=== PATIENT | female | born 1980 | race Caucasian/White ===

== ENCOUNTER 2023-10-20 16:15 | Emergency (ER) | payer BC, SELFPAY ==
[2023-10-20] VITALS (7 sets, daily range): BP systolic 125–162; BP diastolic 74–114; BMI 30.1
[2023-10-20 16:38] LABS: % Basophils 0.5 % (0-2); % Eosinophils 1.1 % (0-6); % Immature Granulocytes 0.3 % (0-0.5); % Lymphocytes 25.5 % (20.5-51.1); % Monocytes 4.1 % (1.7-9.3); % Neutrophils 68.5 % (42.2-75.2); Absolute Basophils 0.1 10^3/uL (0-0.2); Absolute Eosinophils 0.1 10^3/uL (0-0.7); Absolute Lymphocytes 2.8 10^3/uL (1.2-3.4); Absolute Monocytes 0.5 10^3/uL (0.1-0.6); Absolute Neutrophils 7.6 10^3/uL (1.4-6.5); Hematocrit 39.3 % (37.0-47.0); Hemoglobin 14.2 g/dL (12.0-16.0); Mean Corp Hgb Conc. 36.1 g/dL (33.0-37.0); Mean Corpuscular Hgb 32.4 pg (27.0-31.0); Mean Corpuscular Volume 89.7 fL (81.0-99.0); Mean Platelet Volume 9.2 fL (7.4-10.4); Nucleated Red Blood Cells % 0 %; Platelet Count 203 10^3/uL (130-400); Red Blood Cell Count 4.38 10^6/uL (4.20-5.40); Red Cell Dist. Width 12.5 % (11.5-14.5)
[2023-10-20 16:52] LABS: ALT (SGPT) 16 U/L (0-35); AST (SGOT) 25 U/L (14-36); Albumin 4.3 g/dl (3.5-5.0); Alkaline Phosphatase 75 U/L (38-126); Blood Urea Nitrogen 13 mg/dl (7-17); Calcium 9.7 mg/dl (8.4-10.2); Carbon Dioxide 23 mmol/L (22-30); Chloride 105 mmol/L (98-107); Estimated Creatinine Clearance 122 ml/min; Glucose 108 mg/dl (70-99); Potassium 3.9 mmol/L (3.5-5.1); Sodium 134 mmol/L (135-145); Total Bilirubin 0.5 mg/dl (0.2-1.3); Total Protein 6.8 g/dl (6.3-8.2); eGFR > 60.00
[2023-10-20 17:03] LABS: Troponin I < 0.012 ng/ml
--- NOTE | 2023-10-20 18:20 | ED.GENMED ---
History of Present Illness
General
Chief Complaint: Swelling
Source: patient
Exam Limitations: none
Time Seen by Provider: 10/20/23 17:48
Nursing documentation reviewed up to this point in time: agreed with
Travel History
Have you had any contact with someone who has COVID-19?: No
Do you have any symptoms of coronavirus? Fever > 100 degrees, chills, cough, shortness of breath, sore throat, loss of taste or smell, muscle aches, or headache?: No
History of Present Illness
History of Present Illness:
Patient is a 43-year-old female who presents to the ER for evaluation. Patient was sent by urgent care. Patient has had pain in her right foot since October 12. She denies any actual injury. She presently denies pain but reports that she had some
calf discomfort. She went to urgent care but was found to have an elevated heart rate and along with a previous cough history was sent to the ER for evaluation. Patient does report that she has had a cough since July she thought it was
bronchitis. She has not been eval by physician. She has not had any fevers. She is a heavy smoker. She denies any actual shortness of breath.
She is not on oral contraceptives no prior history of DVT PE. She does report that her heart was fast at urgent care which is one of the reason she was sent here. She also reports her heart rate is fast here in the ER. She reports he is very
anxious because she was sent here to the ER. She also admits that she feels that this may be from alcohol as well. She admits to drinking at least 2 to 3 glasses of wine per day while she cooks dinner and this is normally the time that she would
be drinking.
Past History
Past History
ED Past Medical History: None
ED Past Surgical History: None
Social History
Tobacco: Smoker
Alcohol: Daily
Drug: None
Personal: Single
Living: alone
Employment: Employed
Review of Systems
Review of Systems
Allergies reviewed?: Yes
All Other Systems: ROS reviewed and negative except as documented in HPI and ROS
Constitutional: Denies fever, fatigue or chills
Respiratory: Reports cough; Denies trouble breathing
Cardiac: Reports no symptoms
ABD/GI: Reports no symptoms
: Reports no symptoms
Musculoskeletal: Reports other (right foot pain /right calf pain )
Skin: Reports no symptoms
Neurological: Reports no symptoms
Hematologic/Lymphatic: Reports no symptoms
Psychiatric: Reports no symptoms
Phy Exam
General Physical Exam
General Presentation: no apparent distress
General age: appears stated age
General Skin: warm and dry
General Habitus: normal
General Mental: alert
General Hydration: appears well hydrated
Neurological Exam
Neurological Exam: alert and oriented x3
Musculoskeletal Exam
Musculoskeletal Exam: other (No obvious swelling or tenderness to right calf no obvious tenderness to right foot presently. Right foot appears very minimally swollen)
Skin Exam
Skin Exam: normal color and warm/dry
Psychiatric Exam
Psychiatric Exam: anxious
Course
Orders/Labs/Results
Orders:
Orders
10/20/23 16:24
Electrocardiogram (*1) Urgent
Reason for Study: Chest Pain
EKG- Treatment ONCE
10/20/23 16:30
Complete Blood Count/With Diff Urgent
Comprehensive Metabolic Panel Urgent
Troponin I Urgent
10/20/23 18:21
Chest [CR Chest - 2 Views ] Urgent
Comment:
Reason For Exam: cough
Venous Doppler Lwr Ext Rt [US Periph Venous LOWER Ext RT] Urgent
Comment:
Reason For Exam: pain right calf
10/20/23 22:46
Foot, Right 3 View [CR Foot - Right Min 3 Views] Urgent
Comment:
Reason For Exam: pain
Abnormal Lab Results
10/20/23
16:30
WBC 11.0 H 10^3/uL
(4.8-10.8)
MCH 32.4 H pg
(27.0-31.0)
Absolute Neuts (auto) 7.6 H 10^3/uL
(1.4-6.5)
Sodium 134 L mmol/L
(135-145)
Glucose 108 H mg/dl
(70-99)
10/20/23 16:30
10/20/23 16:30
Vital Signs
Initial and Last Documented VS:
Initial Vital Signs
Temp Pulse Resp BP Pulse Ox
98.6 F 121 20 162/107 97
10/20/23 16:19 10/20/23 16:19 10/20/23 16:19 10/20/23 16:19 10/20/23 16:19
Last Documented Vital Signs
Temp Pulse Resp BP Pulse Ox
98.8 F 95 12 143/86 97
10/20/23 19:15 10/20/23 22:45 10/20/23 22:45 10/20/23 22:15 10/20/23 22:45
MDM/Problems Addressed
Differential Diagnosis Includes:
Not limited to bronchitis, pneumonia foot fracture / sprain
MDM/Problems Addressed:
Patient is a 43-year-old female who presents to the ER for evaluation. Patient presented to urgent care initially for evaluation of right foot swelling and discomfort. She denies any injury but does have pain since October 12. She also complained
of a cough (for the past several months )and reports she is a very heavy smoker. She had an elevated heart rate and urgent care was sent here. She presents awake alert no acute distress she is very anxious anxious about her heart rate anxious
about foot pain and is concerned that part of her anxiety and elevated heart rate is from alcohol use. She does drink 2 to 3 glasses of wine or more per day and has not drank and is simply anxious about coming to the ER. She however on exam
despite looking a little anxious is nontremulous no nausea vomiting no sweating and heart rate seems improve when patient is not looking at the monitor or concentrating on her heart rate.
She is not short of breath she is a smoker no oral contraceptives . Symptoms are not consistent with PE. X-ray is negative. Patient did report fevers but is afebrile here white count minimally elevated with patient being a chronic smoker and
having a cough which is not improving will start on Zithromax will send patient home with an inhaler
Regarding right foot pain there is no injury minimal swelling on exam, x-ray negative ultrasound negative will plan to discharge with outpatient follow-up podiatry.
I did offer patient information alcohol use however she declines. She and her are getting any family doctor and she will follow-up with them.
*Radiology
Radiology exam reviewed: radiology read reviewed
*Critical Care Note
Total Time (30-74mins, 75-104mins- exclusive of procedures): Not Applicable
ED Attending Note
-
Portions of this chart may have been created with voice recognition software.� Occasional wrong word or��sound alike� substitutions may have occurred due to the inherent limitations of voice recognition software.
Discharge Plan
Departure
Patient Disposition: Home (Routine Discharge)
Date of Disposition: 10/20/23
Time of Disposition: 23:45
Patient with high blood pressure during this ER visit?: Yes
Condition: Fair
Covid-19: Not Applicable
Discharge Problem:
Bronchitis, foot pain
Instructions: Acute Bronchitis, Adult (DC), Muscle and Bone Pain (DC)
Prescriptions:
New
Proair Digihaler 90 mcg/actuation aero powdr breath act w/sensor
2 inh inhalation Q6H PRN (Reason: shortness of breath or wheezing) Qty: 1 0RF
azithromycin [Zithromax Z-Gopi] 250 mg tablet
250 mg PO DAILY 6 Days Qty: 6 0RF
No Action
esomeprazole magnesium [Nexium] 20 mg Capsule,Delayed Release(Dr/Ec)
20 mg PO DAILY
Referrals:
NONE,* [Family Provider] -
Naseem Ashraf DPM [Specified Professional Personl] -
Activity Restrictions/Additional Instructions:
Antibiotic as as directed for bronchitis. in addition to antibiotic a prescription for inhalers were sent to your pharmacy use as directed. You may continue to use Mucinex
For your foot pain you may take ibuprofen for discomfort and please follow-up with podiatry. Keep elevated as much as possible.
Return if any worsening of symptoms
Interventions
Interventions:
*Risk Screen - Suicide Last Done: 10/20/23 16:19
*General Assessment Last Done: 10/20/23 17:41
*Neglect/Abuse Screening Last Done: 10/20/23 16:19
ED- Fall Risk Assessment Last Done: 10/20/23 16:19
*ED COVID-19 Vaccine History Last Done: 10/20/23 16:19
ED- Cardiac Assessment Last Done: 10/20/23 19:14
ED- Pulmonary Assessment Last Done: 10/20/23 19:14
ED-Skin Assessment Last Done: 10/20/23 19:14
Discharge Date and Time
Print Language: ROMANIAN
--- NOTE | 2023-10-20 19:07 | EDRN ---
Pt has had a cough for couple months. Pt notes she has pain top of her R foot that started 10/12. Pt has pain only when she puts pressure on it. R calf pain started couple days after foot pain which pt attributed to walking differently with R foot
pain. Pt says her foot will swell up sometimes but is not swollen now. Pt came home after food shopping today, pulled into her driveway and started feeling flush and heavy. Pt took her temp = 100 then 99.2. Pt took motrin and drank coffee then
went to urgent care because she was concerned she has a bacterial infection in her lungs and needs an abx. Pt says her temp was 99.9 at urgent care. Pt reportedly had very high bp and HR and was told to go to ED for evaluation. No sob, abd pain,
n/v/d/constipation, urinary symptoms.
== END 2023-10-20 23:57 | disposition home or self-care (01) ==
LOC: EMR 16:15
PROVIDERS: Emergency Medicine; EMERGENCY PHYSICIAN Student in an Organized Health Care Education/Training Program
DX: J20.9 Acute bronchitis, unspecified (principal); M79.671 Pain in right foot; M79.661 Pain in right lower leg; M79.89 Other specified soft tissue disorders; F10.90 Alcohol use, unspecified, uncomplicated; R03.0 Elevated blood-pressure reading, without diagnosis of hypertension; F41.9 Anxiety disorder, unspecified; K21.9 Gastro-esophageal reflux disease without esophagitis; F17.210 Nicotine dependence, cigarettes, uncomplicated
CPT/HCPCS: 99284; 71046; 73630; 80053; 84484; 85025; 93005; 93971

== ENCOUNTER 2023-12-11 01:17 | Emergency (ER) | payer BC, SELFPAY ==
[2023-12-11 01:19] VITALS: BP 197/106
--- NOTE | 2023-12-11 02:04 | ED.GENMED ---
History of Present Illness
General
Chief Complaint: Headache
Source: patient
Exam Limitations: none
Time Seen by Provider: 12/11/23 01:31
Travel History
Have you had any contact with someone who has COVID-19?: No
Do you have any symptoms of coronavirus? Fever > 100 degrees, chills, cough, shortness of breath, sore throat, loss of taste or smell, muscle aches, or headache?: No
History of Present Illness
History of Present Illness:
This is a 43 year old female that comes in with c/o headache. States that this has been going on for a week and she feels it is slowly getting worse. States that she has herniated disc in her neck. States that her discomfort is on the right sided of
her head. States that her headaches only happen when her neck is thrown out. States that for the past 4 days she has only slept about 4 hours. states that the pain goes form the right sided of her head around the right eye. States that she started a
steroid pack yesterday and this seemed to help. States that her headache pain was gone until tonight she felt the top of her head and thought that there was a lump there. States that this caused her headache to come back. States that she then took
her temp and it wa 100.2. States that she was very slightly dizzy. Denies any chills, chest pain, SOB, abd pain, nausea, vomiting, diarrhea, urinary burning.
Past History
Past History
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
ED Past Surgical History: None
Social History
Tobacco: Vaping (Former cigs and now Vaps)
Alcohol: Daily (Wine 1 )
Drug: None
Personal:
Living: alone
Employment: Employed
Review of Systems
Review of Systems
All Other Systems: ROS reviewed and negative except as documented in HPI and ROS
Constitutional: Reports fever; Denies chills
EENT: Reports no symptoms
Respiratory: Reports no symptoms; Denies cough or trouble breathing
Cardiac: Reports no symptoms; Denies chest pain
ABD/GI: Reports nausea; Denies abdominal pain, vomiting or diarrhea
: Reports no symptoms; Denies dysuria, frequency or urgency
Musculoskeletal: Reports no symptoms
Skin: Reports no symptoms
Neurological: Reports dizzy (Slight) and headache
Psychiatric: Reports no symptoms
Phy Exam
General Physical Exam
General Presentation: no apparent distress
General age: appears stated age
General Skin: warm and dry
General Habitus: normal
General Mental: alert
General Hydration: appears well hydrated
ENT Exam
ENT Exam: TM's normal, pharynx normal and neck supple
Eye Exam
Eye Exam: EOMI
Cardiovascular Exam
Cardiovascular Exam: regular rate/rhythm, no edema, no murmur and normal peripheral pulses
Pulmonary Exam
Pulmonary Exam: lungs clear, no respiratory distress, no rales, chest non tender, no crackles, no rhonchi, no wheezing and no cough
Gastrointestinal Exam
Gastrointestinal Exam: normal bowel sounds, non tender, soft, no organomegaly, no pulsatile mass and non distended
Musculoskeletal Exam
Musculoskeletal Exam: full ROM and no edema
Skin Exam
Skin Exam: normal color, warm/dry, no rash, no petechia and other (No rash noted on scalp)
Psychiatric Exam
Psychiatric Exam: anxious
Course
Orders/Labs/Results
Orders:
Orders
12/11/23 01:58
CT Head W/o Iv Contrast Urgent
Comment:
Reason For Exam: Headache
12/11/23 02:31
CRP [C-Reactive Protein] Urgent
Complete Blood Count/With Diff Urgent
Comprehensive Metabolic Panel Urgent
Sed Rate [Erythrocyte Sed Rate] Urgent
12/11/23 02:32
Urinalysis Reflex To Culture Urgent
Date Specimen was Collected: 12/11/23
Time Specimen was Collected: 01:59
Urine Microscopic Reflex Cult Urgent
12/11/23 03:16
Acetaminophen [Tylenol] 1,000 mg PO NOW STA
Ketorolac [Toradol] 30 mg IV NOW STA
Abnormal Lab Results
12/11/23 12/11/23
02:31 02:32
WBC 12.4 H 10^3/uL
(4.8-10.8)
MCH 31.7 H pg
(27.0-31.0)
Absolute Neuts (auto) 9.4 H 10^3/uL
(1.4-6.5)
Neutrophils % 75.7 H %
(42.2-75.2)
Lymphocytes % 18.2 L %
(20.5-51.1)
Glucose 110 H mg/dl
(70-99)
Ur Occult Blood Reflex 1+ A
(Negative)
12/11/23 02:31
12/11/23 02:31
WBC slightly elevated (patient taking steroids), glucose nonfasting. CRP normal at <5.0, Urine negative for infection.
Vital Signs
Initial and Last Documented VS:
Initial Vital Signs
Temp Pulse Resp BP Pulse Ox
98.3 F 134 24 197/106 100
12/11/23 01:19 12/11/23 01:19 12/11/23 01:19 12/11/23 01:19 12/11/23 01:19
Last Documented Vital Signs
Temp Pulse Resp BP Pulse Ox
98.3 F 134 24 122/83 100
12/11/23 01:19 12/11/23 01:19 12/11/23 01:19 12/11/23 03:11 12/11/23 01:19
MDM/Problems Addressed
Differential Diagnosis Includes:
Temporal arteritis, Trigeminal neuralgia, Headache
MDM/Problems Addressed:
This is a 43 year old female that comes in with c/o a headache for the past week. States that she started Medrol dose pack yesterday and this seemed to help. States that she touched the top of her head tonight and she thought she felt a lump and
pushed. States that this brought the headache back. States that she doesn't like to take medication and refused pain medication at this time.
Will get labs and CT head.
Back into see patient and reviewed all findings. Encouraged patient to increase her water intake to 8-8oz glasses daily. Patient can use Tylenol 1000mg every 6 hours and Ibuprofen 600mg every 6 hours for headache pain. Patient to continue with the
steroid taper as directed. Follow up with the family doctor. Return with any concerns.
Chronic conditions affecting care:
Herniated disc cervical spine,
Acute Exacerbation and/or Progression of Chronic Illness:
NA
*Radiology
Radiology exam reviewed: radiology read reviewed (CT head [place]- CT head without contrast. Comparison exam CT head 03/13/2023. No acute intracranial hemorrhage. No acute intracranial abnormality. )
*Pulse Oximetry
Patient hypoxic: no
*EKG
Interpreted by ED Provider?: NA
Rate: EKG- N/A
*Security Operations Engineer Interpretation
Rate: Security Operations Engineer- N/A
*Critical Care Note
Total Time (30-74mins, 75-104mins- exclusive of procedures): Not Applicable
ED Attending Note
-
Portions of this chart may have been created with voice recognition software.� Occasional wrong word or��sound alike� substitutions may have occurred due to the inherent limitations of voice recognition software.
Discharge Plan
Departure
Patient Disposition: Home (Routine Discharge)
Date of Disposition: 12/11/23
Time of Disposition: 03:24
Patient with high blood pressure during this ER visit?: Yes
Condition: Good
Covid-19: Not Applicable
Discharge Problem:
Headache
Instructions: Headache, Adult (DC), BLOOD PRESSURE
Prescriptions:
No Action
esomeprazole magnesium [Nexium] 20 mg Capsule,Delayed Release(Dr/Ec)
20 mg PO DAILY
Proair Digihaler 90 mcg/actuation aero powdr breath act w/sensor
2 inh inhalation Q6H PRN (Reason: shortness of breath or wheezing) Qty: 1 0RF
azithromycin [Zithromax Z-Gopi] 250 mg tablet
250 mg PO DAILY 6 Days Qty: 6 0RF
Referrals:
NONE,* [Family Provider] -
Activity Restrictions/Additional Instructions:
As discussed, your blood work shows that your WBC are elevated. This is most likely due to the steroid use. Your CT of the head is normal. Your inflammatory markers are normal. Please increase your water intake to 8-8oz glasses daily. Continue with
the steroid taper dose that you started. You may also use Tylenol 1000mg every 6 hours for pain and alternate with Ibuprofen 600mg every 6 hours with food. Follow up with the family doctor. IF YOU HAVE ANY OTHER CONCERNS PLEASE RETURN TO THE
EMERGENCY ROOM.
Interventions
Interventions:
*Risk Screen - Suicide Last Done: 12/11/23 01:19
*General Assessment Last Done: 12/11/23 03:02
*Neglect/Abuse Screening Last Done: 12/11/23 01:19
ED- Fall Risk Assessment Last Done: 12/11/23 03:02
ED- Neurological Assessment Last Done: 12/11/23 03:02
Discharge Date and Time
Print Language: ALBANIAN
[2023-12-11 02:36] LABS: % Basophils 0.3 % (0-2); % Eosinophils 0.5 % (0-6); % Immature Granulocytes 0.3 % (0-0.5); % Lymphocytes 18.2 % (20.5-51.1); % Neutrophils 75.7 % (42.2-75.2); Absolute Eosinophils 0.1 10^3/uL (0-0.7); Absolute Lymphocytes 2.3 10^3/uL (1.2-3.4); Absolute Monocytes 0.6 10^3/uL (0.1-0.6); Absolute Neutrophils 9.4 10^3/uL (1.4-6.5); Mean Corp Hgb Conc. 35.9 g/dL (33.0-37.0); Mean Corpuscular Hgb 31.7 pg (27.0-31.0); Mean Corpuscular Volume 88.4 fL (81.0-99.0); Mean Platelet Volume 9.1 fL (7.4-10.4); Nucleated Red Blood Cells % 0 %; Platelet Count 211 10^3/uL (130-400); Red Blood Cell Count 4.41 10^6/uL (4.20-5.40); Red Cell Dist. Width 11.9 % (11.5-14.5); White Blood Cell Count 12.4 10^3/uL (4.8-10.8)
[2023-12-11 02:51] LABS: ALT (SGPT) 16 U/L (0-35); AST (SGOT) 24 U/L (14-36); Albumin 4.7 g/dl (3.5-5.0); Alkaline Phosphatase 79 U/L (38-126); Blood Urea Nitrogen 14 mg/dl (7-17); Calcium 9.8 mg/dl (8.4-10.2); Carbon Dioxide 25 mmol/L (22-30); Chloride 106 mmol/L (98-107); Glucose 110 mg/dl (70-99); Potassium 3.9 mmol/L (3.5-5.1); Sodium 141 mmol/L (135-145); Total Bilirubin 0.3 mg/dl (0.2-1.3); Total Protein 7.5 g/dl (6.3-8.2); eGFR > 60.00
[2023-12-11 02:55] LABS: C-Reactive Protein < 5.00 mg/L (0.0-10.00)
[2023-12-11 03:11] VITALS: BP 122/83
[2023-12-11 03:20] LABS: Urine Albumin Negative (Neg - Trace); Urine Bilirubin Negative (Negative); Urine Character Clear (Clear); Urine Color Yellow; Urine Glucose Negative (Negative); Urine Ketone Negative (Negative); Urine Leukocyte Negative (Negative); Urine Nitrite Negative (Negative); Urine Occult Blood 1+ (Negative); Urine Urobilinogen Negative (Neg - 1+)
[2023-12-11] MEDS: TYLENOL 1000 MG PO (03:26)
[2023-12-11] MEDS: TORADOL 30 MG IV (03:26)
[2023-12-11 03:48] LABS: Erythrocyte Sed Rate 9 mm/hour (0-20)
[2023-12-11 03:52] LABS: Urine Bacteria Moderate (Negative); Urine Squamous Cell >30 /LPF (Few)
== END 2023-12-11 03:30 | disposition home or self-care (01) ==
LOC: EMR 01:17
PROVIDERS: Clinical Nurse Specialist Family Health; EMERGENCY PHYSICIAN Emergency Medicine
DX: R51.9 Headache, unspecified (principal); Z87.891 Personal history of nicotine dependence
CPT/HCPCS: 99284; 96374; 70450; 80053; 81003; 81015; 85025; 85652; 86140; 87086

== ENCOUNTER 2024-03-04 04:42 | Emergency (ER) | payer BC, SELFPAY ==
[2024-03-04 04:54] VITALS: BP 154/93
[2024-03-04 05:22] VITALS: BMI 30.6
[2024-03-04 05:58] LABS: % Basophils 0.4 % (0-2); % Immature Granulocytes 0.3 % (0-0.5); % Lymphocytes 18.4 % (20.5-51.1); % Monocytes 6.8 % (1.7-9.3); % Neutrophils 73.1 % (42.2-75.2); Absolute Eosinophils 0.1 10^3/uL (0-0.7); Absolute Lymphocytes 1.3 10^3/uL (1.2-3.4); Absolute Monocytes 0.5 10^3/uL (0.1-0.6); Absolute Neutrophils 5.2 10^3/uL (1.4-6.5); Hematocrit 40.7 % (37.0-47.0); Hemoglobin 14.4 g/dL (12.0-16.0); Mean Corp Hgb Conc. 35.4 g/dL (33.0-37.0); Mean Corpuscular Hgb 32.1 pg (27.0-31.0); Mean Corpuscular Volume 90.6 fL (81.0-99.0); Mean Platelet Volume 9.1 fL (7.4-10.4); Nucleated Red Blood Cells % 0 %; Platelet Count 205 10^3/uL (130-400); Red Blood Cell Count 4.49 10^6/uL (4.20-5.40); Red Cell Dist. Width 11.9 % (11.5-14.5); White Blood Cell Count 7.2 10^3/uL (4.8-10.8)
[2024-03-04 06:04] VITALS: BP 125/86
[2024-03-04 06:06] LABS: HCG, Serum Qualitative Screen Negative
[2024-03-04 06:11] LABS: ALT (SGPT) 30 U/L (0-35); AST (SGOT) 39 U/L (14-36); Albumin 4.8 g/dl (3.5-5.0); Alkaline Phosphatase 100 U/L (38-126); Blood Urea Nitrogen 13 mg/dl (7-17); Calcium 9.8 mg/dl (8.4-10.2); Carbon Dioxide 24 mmol/L (22-30); Chloride 103 mmol/L (98-107); Estimated Creatinine Clearance 99 ml/min; Glucose 125 mg/dl (70-99); Potassium 4.5 mmol/L (3.5-5.1); Sodium 139 mmol/L (135-145); Total Bilirubin 0.6 mg/dl (0.2-1.3); Total Protein 7.3 g/dl (6.3-8.2); eGFR > 60.00
[2024-03-04 06:22] LABS: NT-proBNP < 20.0 pg/ml; Troponin I < 0.012 ng/ml
[2024-03-04] MEDS: NSS 1000 IV (06:34)
[2024-03-04 06:39] LABS: TSH Reflex To Free T4 2.24 uIU/ml (0.47-4.68)
[2024-03-04 07:00] VITALS: BP 128/87
[2024-03-04 07:38] LABS: Alcohol None Detected
[2024-03-04 08:00] VITALS: BP 131/81
--- NOTE | 2024-03-04 08:04 | ED.GENMED ---
History of Present Illness
General
Chief Complaint: Heart Rate Problem
Source: patient
Exam Limitations: none
Time Seen by Provider: 03/04/24 06:02
Nursing documentation reviewed up to this point in time: agreed with
History of Present Illness
History of Present Illness:
Patient presents to ED secondary to intermittent chest palpitations over the past 3 weeks, which has worsened over the past 24 hours, associated with left upper back pain and shortness of breath. Denies dizziness or shortness of breath. Denies
nausea, vomiting, or diarrhea. Denies headache. Denies leg pain or swelling. Denies smoking but does admit to drinking alcohol daily, specifically wine. Denies recent illness. Denies recent change in medications or diet. There is family
history of heart disease. Of note, patient states that even prior to 3 weeks ago, patient has had intermittent palpitations, which resolved spontaneously. Patient has not been evaluated by any physician regarding her palpitations.
Past History
Past History
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
ED Past Surgical History: None
Social History
Tobacco: Vaping (Former cigs and now Vaps)
Alcohol: Daily (Wine 1 )
Drug: None
Personal:
Living: alone
Employment: Employed
Review of Systems
Review of Systems
Allergies reviewed?: Yes
All Other Systems: ROS reviewed and negative except as documented in HPI and ROS
Constitutional: Reports no symptoms
EENT: Reports no symptoms
Respiratory: Reports no symptoms
Cardiac: Reports palpitations
ABD/GI: Reports no symptoms
: Reports no symptoms
Musculoskeletal: Reports back pain
Skin: Reports no symptoms
Neurological: Reports no symptoms
Phy Exam
Physical Exam
Physical Exam:
Physical Exam
General: no apparent distress, not acutely ill. afebrile
Head: nc/at. eomi
Neck: supple. no meningeal signs.
Heart: tachycardic, no murmur. equal radial pulses.
Lungs: no acute respiratory distress. clear bilaterally
Abdomen: normal bowel sounds. not tender.
Neuro: alert and oriented. no focal neurological deficits
Skin: no rash
Psychiatric: well kept. interactive and cooperative
Extremities: no edema. no calf tenderness.
Course
Orders/Labs/Results
Orders:
Orders
03/04/24 05:00
Electrocardiogram (*1) Urgent
Reason for Study: Other
Other Reason for Exam: Respiratory Distress
Cardiac Monitoring- Treatment ONCE
EKG- Treatment ONCE
IV Insert/Care/Rem.- Treatment PRN
CR Chest - 2 Views Urgent
Comment:
Reason For Exam: respiratory distress
O2 Therapy [RESP] Urgent
Titrate/Wean O2 to maintain O2 sat greater than (%): 93
Special Instructions: TO MAINTAIN CONTINUOUS O2 SATS >/= 93%
Pulse Ox/cont/shift [RESP] Urgent
Quantity: 1
Special Instructions: continuous pulse ox
03/04/24 05:25
Test Result ONCE
03/04/24 05:45
Alcohol Urgent
Complete Blood Count/With Diff Urgent
Comprehensive Metabolic Panel Urgent
HCG, Serum Qualitative Screen Urgent
NT-proBNP Urgent
TSH Reflex To Free T4 Urgent
Troponin I Urgent
03/04/24 06:31
0.9% Sodium Chloride 1000 ml [Nss] 1,000 ml IV BOLUS
03/04/24 06:32
Add On- LAB Urgent
Tests Added?: alcohol level, magnesium
03/04/24 06:39
D-Dimer Urgent
Abnormal Lab Results
03/04/24
05:45
MCH 32.1 H pg
(27.0-31.0)
Lymphocytes % 18.4 L %
(20.5-51.1)
Glucose 125 H mg/dl
(70-99)
AST 39 H U/L
(14-36)
03/04/24 05:45
03/04/24 05:45
Vital Signs
Initial and Last Documented VS:
Initial Vital Signs
Temp Pulse Resp BP Pulse Ox
98.3 F 120 20 154/93 98
03/04/24 04:54 03/04/24 04:54 03/04/24 04:54 03/04/24 04:54 03/04/24 04:54
Last Documented Vital Signs
Temp Pulse Resp BP Pulse Ox
98.3 F 100 10 126/92 98
03/04/24 04:54 03/04/24 09:00 03/04/24 09:00 03/04/24 09:00 03/04/24 07:32
MDM/Problems Addressed
MDM/Problems Addressed:
Pt with an unremarkable workup in ED, along with improved HR and symptoms after hydration. Pt's presenting symptoms, likely multifactorial, including daily alcohol and caffeine intake, as well as recent dietary indiscretion. However, difficult to
exclude underlying heart disease. As such, advised close f/u with cardiology for an outpatient consultation, with recommendation to modify alcohol/caffeine intake. In addition, provide beta yael prescription, to be taken when symptomatic at home,
until re-evaluation. However, if symptoms worse or not improve with medication, advised to return to ED for further evaluation.
*EKG
Interpreted by ED Provider?: Yes
EKG Intrepretation Date: 03/04/24
Heart Rate: 114
Rate: tachycardiac
Rhythm: sinus
[place]: normal axis
Interval: normal interval
*Critical Care Note
Total Time (30-74mins, 75-104mins- exclusive of procedures): Not Applicable
ED Attending Note
-
Portions of this chart may have been created with voice recognition software.� Occasional wrong word or��sound alike� substitutions may have occurred due to the inherent limitations of voice recognition software.
Discharge Plan
Departure
Patient Disposition: Home (Routine Discharge)
Date of Disposition: 03/04/24
Time of Disposition: 09:15
Patient with high blood pressure during this ER visit?: Yes
Condition: Good
Discharge Problem:
Heart palpitations, Ventricular premature beats
Instructions: Ventricular premature beats, Palpitations (DC)
Prescriptions:
New
metoprolol tartrate 25 mg tablet
12.5 mg PO ONCE PRN (Reason: palpitations) Qty: 20 0RF
No Action
esomeprazole magnesium [Nexium] 20 mg Capsule,Delayed Release(Dr/Ec)
20 mg PO DAILY
Proair Digihaler 90 mcg/actuation aero powdr breath act w/sensor
2 inh inhalation Q6H PRN (Reason: shortness of breath or wheezing) Qty: 1 0RF
azithromycin [Zithromax Z-Gopi] 250 mg tablet
250 mg PO DAILY 6 Days Qty: 6 0RF
Referrals:
NONE,* [Family Provider] -
Andrés Moffett MD [Active] -
Activity Restrictions/Additional Instructions:
As discussed, please follow-up with your primary care physician and/or referred prosthetist for further evaluation and treatment. Your prescription has been sent electronically to [facility] pharmacy in [place].
Interventions
Interventions:
*Risk Screen - Suicide Last Done: 03/04/24 04:54
*General Assessment Last Done: 03/04/24 04:54
*Neglect/Abuse Screening Last Done: 03/04/24 04:54
ED- Fall Risk Assessment Last Done: 03/04/24 04:54
*ED COVID-19 Vaccine History Last Done: 03/04/24 04:54
*Nursing Disposition Last Done: 03/04/24 09:24
ED- Cardiac Assessment Last Done: 03/04/24 05:00
ED- Pulmonary Assessment Last Done: 03/04/24 05:00
Discharge Date and Time
Discharge Date/Time: 03/04/24 09:25
Print Language: HEBREW
[2024-03-04 08:06] LABS: D-Dimer < 0.27 ug/mlFEU (0.00-0.50)
[2024-03-04 09:00] VITALS: BP 126/92
== END 2024-03-04 09:25 | disposition home or self-care (01) ==
LOC: EMR 04:42
PROVIDERS: Emergency Medicine; EMERGENCY PHYSICIAN Emergency Medicine
DX: R00.2 Palpitations (principal); M54.6 Pain in thoracic spine; R06.02 Shortness of breath; I49.3 Ventricular premature depolarization; R03.0 Elevated blood-pressure reading, without diagnosis of hypertension; K21.9 Gastro-esophageal reflux disease without esophagitis; M50.20 Other cervical disc displacement, unspecified cervical region; F17.290 Nicotine dependence, other tobacco product, uncomplicated; Z82.49 Family history of ischemic heart disease and other diseases of the circulatory system
CPT/HCPCS: 99284; 96360; 71046; 80053; 82077; 83880; 84443; 84484; 84703; 85025; 85379; 93005

== ENCOUNTER → 2024-03-13 15:03 | Outpatient (REF) | payer BC, SELFPAY | LOC: HWRCS 15:03 | PROVIDERS: ATTENDING PHYSICIAN Internal Medicine | DX: I49.3 Ventricular premature depolarization (principal); Z82.49 Family history of ischemic heart disease and other diseases of the circulatory system | CPT/HCPCS: 93306 ==

== ENCOUNTER 2024-12-22 08:03 | Emergency (ER) | payer BC, SELFPAY ==
[2024-12-22 08:15] VITALS: BP 163/98
--- NOTE | 2024-12-22 08:47 | ED.GENMED ---
History of Present Illness
General
Chief Complaint: Chest Pain
Source: patient
Exam Limitations: none
Time Seen by Provider: 12/22/24 08:29
History of Present Illness
History of Present Illness:
See MDM
Past History
Past History
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
ED Past Surgical History: None
Social History
Tobacco: Vaping (Former cigs and now Vaps)
Alcohol: Daily (Wine 1 )
Drug: None
Personal:
Living: alone
Employment: Employed
Phy Exam
Physical Exam
Physical Exam:
See MDM
Scores
Heart Score for Chest Pain Patients
STEMI patient?: No
History: Slightly or Non-Suspicious
ECG: Normal
Age: </= 45 years
Risk Factors: No Risk Factors
Troponin: </= Normal Limit
Heart Score for Chest Pain Patients: 0
Heart Score Risk: 2.5% MACE over next 6 weeks
Course
Orders/Labs/Results
Orders:
Orders
12/22/24 08:18
EKG [Electrocardiogram (*1)] Urgent
Reason for Study: Palpitations
EKG- Treatment ONCE
12/22/24 08:46
CR Chest - 2 Views Urgent
Comment:
Reason For Exam: chest pain
12/22/24 08:50
COVID-19 Antigen Urgent
Source: Nasal Swab
Complete Blood Count/With Diff Urgent
Comprehensive Metabolic Panel Urgent
Lipase Urgent
Troponin I Urgent
Abnormal Lab Results
12/22/24
08:50
MCH 31.8 H pg
(27.0-31.0)
Chloride 108 H mmol/L
(98-107)
Glucose 117 H mg/dl
(70-99)
12/22/24 08:50
12/22/24 08:50
Vital Signs
Initial and Last Documented VS:
Initial Vital Signs
Temp Pulse Resp BP Pulse Ox
98.8 F 105 18 163/98 99
12/22/24 08:15 12/22/24 08:15 12/22/24 08:15 12/22/24 08:15 12/22/24 08:15
Last Documented Vital Signs
Temp Pulse Resp BP Pulse Ox
98.8 F 86 12 110/77 98
12/22/24 08:15 12/22/24 12:00 12/22/24 12:00 12/22/24 12:00 12/22/24 11:45
MDM/Problems Addressed
Differential Diagnosis Includes:
Note:
CHIEF COMPLAINT(S)
Chest pain and palpitations
HISTORY OF PRESENT ILLNESS
The patient is a 44-year-old female presenting with chest pain and palpitations that started about one and a half weeks ago. The chest pain is associated with upper back pain and occurs intermittently with a stabbing and shooting character,
sometimes radiating down the arm and shoulder. The patient describes the pain as feeling like a viral infection, with difficulty sleeping due to palpitations waking her up frequently.
The patient has a prior history of similar symptoms around March last year, attributed to an emotional stressor but now presents differently with additional chest and back pain. Previous evaluation showed an irregular heartbeat 'in the lower
chamber', managed with metoprolol, which the patient has adjusted to take in the evening due to difficulty sleeping.
The patient also reports episodes of diarrhea with black stools which she hypothesizes might be due to dehydration or vitamin intake. I did raise concern for possible peptic ulcer disease or upper GI bleeding but patient currently declining rectal
exam at the moment.
The patient began experiencing these symptoms while on a business trip, and reports that physical activity seems to alleviate her symptoms, while relaxation exacerbates them. She has also described performing Valsalva maneuvers to provide symptom
relief.
The patient has no shortness of breath currently and is not experiencing wheezing. A prior echocardiogram was normal, and she is scheduled for a follow-up cardiology appointment in March.
ADDITIONAL HISTORY OBTAINED FROM SOURCES OTHER THAN THE PATIENT
According to the pt, the spouse experienced similar symptoms of chest pain, palpitations, and back pain, believed to have been transmitted from the patient. These symptoms have since resolved in the spouse.
SOCIAL DETERMINANTS AFFECTING HEALTH
The patient has recently quit smoking but started vaping to assist with smoking cessation. She reports significant alcohol consumption acknowledging it might contribute to her gastric symptoms.
MEDICATIONS
- Metoprolol
- Nexium (for heartburn)
REVIEW OF SYSTEMS
- Cardiovascular: Palpitations, chest pain, worse at night, improved with exercise.
- Gastrointestinal: Diarrhea with black stools.
- Musculoskeletal: Upper back pain, radiating to arm and shoulder.
PHYSICAL EXAM
General: Well appearing and non-toxic
HEENT: protecting airway
Neck: appears supple
CV: No evidence of cyanosis. Regular rate and rhythm
Resp: No accessory muscle use. Lungs clear
Abd: Non-distended. Soft and nontender
Extremities: No deformities
Neuro: alert
Psych: Normal affect
Skin: Intact
Nursing notes reviewed and vital signs reviewed.
PLAN
- Blood work to rule out anemia and evaluate cardiac biomarkers.
- Chest X-ray to rule out pneumonia.
- Consider testing for COVID-19 and peptic ulcer disease if appropriate.
- Re-evaluation if symptoms persist or worsen.
DIFFERENTIAL DIAGNOSIS
The Differential Diagnosis includes, in no particular order and is not limited to:
- Atrial fibrillation
- Peptic ulcer disease
- Gastroesophageal reflux disease
- Myocardial ischemia
- Anemia
- COVID-19
- Anxiety/panic disorder
- Costochondritis
- Pericarditis
- Gastritis
EKG
My independent EKG interpretation is:
- Rhythm: Sinus rhythm
- Heart Rate: 99 beats per minute
- [place]: Normal axis
- Findings: No ST elevation myocardial infarction (STEMI)
CARE-UPDATE
12/22/24 - 12:30
Patient updated on negative workup; chest X-ray clear, and blood work within normal limits, including troponin. Patient reported feeling somewhat better. Suggested possibility of esophagitis, with patient agreement. Patient admitted to not filling
GI-prescribed medication from several months ago. Plan to initiate a short course of Carafate to evaluate symptom improvement.
DISPOSITION
The patient is discharged home after discussing that she feels comfortable.
MEDICATION RECONCILIATION
A short course of sucralfate was initiated in addition to her prescribed esomeprazole.
MEDICAL DECISION MAKING
1. Number & Complexity of Problems: Consideration of esophagitis due to known gastrointestinal history and negative chest workup.
2. Data Reviewed: Blood work and chest x-ray results reviewed.
3. Risk: Consideration of admission was made due to the complexity and chest pain presentation. However, outpatient management was deemed appropriate based on reassuring work-up and patients agreement with the plan.
*Pulse Oximetry
SaO2: 99
Oxygen Mode of Delivery: Room air
Patient hypoxic: no
*Critical Care Note
Total Time (30-74mins, 75-104mins- exclusive of procedures): Not Applicable
ED Attending Note
-
Portions of this chart may have been created with voice recognition software.� Occasional wrong word or��sound alike� substitutions may have occurred due to the inherent limitations of voice recognition software.
Discharge Plan
Departure
Patient Disposition: Home (Routine Discharge)
Date of Disposition: 12/22/24
Time of Disposition: 12:24
Patient with high blood pressure during this ER visit?: No
Discharge Problem:
Esophagitis
Instructions: Esophagitis
Prescriptions:
New
sucralfate [Carafate] 1 gram tablet
1 g PO BID Qty: 30 0RF
No Action
esomeprazole magnesium [Nexium] 20 mg Capsule,Delayed Release(Dr/Ec)
20 mg PO DAILY
Proair Digihaler 90 mcg/actuation aero powdr breath act w/sensor
2 inh inhalation Q6H PRN (Reason: shortness of breath or wheezing) Qty: 1 0RF
azithromycin [Zithromax Z-Gopi] 250 mg tablet
250 mg PO DAILY 6 Days Qty: 6 0RF
metoprolol tartrate 25 mg tablet
12.5 mg PO ONCE PRN (Reason: palpitations) Qty: 20 0RF
Referrals:
NONE,* [Family Provider, Internal Medicine]
Activity Restrictions/Additional Instructions:
Please return for any worsening symptoms.
You may return at any time if you have further concerns.
Please follow up with your doctor at the first available appointment, preferably this week.
Thank you for choosing [facility].
Interventions
Interventions:
*Risk Screen - Suicide Last Done: 12/22/24 09:11
*General Assessment Last Done: 12/22/24 09:12
*Neglect/Abuse Screening Last Done: 12/22/24 09:11
*ED- Fall Risk Assessment Last Done: 12/22/24 09:11
ED- Cardiac Assessment Last Done: 12/22/24 09:10
Discharge Date and Time
Print Language: IRISH
[2024-12-22 08:49] VITALS: BP 131/93
[2024-12-22 09:00] VITALS: BP 119/81
[2024-12-22 09:05] LABS: % Basophils 0.4 % (0-2); % Eosinophils 1.2 % (0-6); % Immature Granulocytes 0.1 % (0-0.5); % Lymphocytes 32.3 % (20.5-51.1); Absolute Eosinophils 0.1 10^3/uL (0-0.7); Absolute Lymphocytes 2.2 10^3/uL (1.2-3.4); Absolute Monocytes 0.5 10^3/uL (0.1-0.6); Hematocrit 38.4 % (37.0-47.0); Hemoglobin 13.5 g/dL (12.0-16.0); Mean Corp Hgb Conc. 35.2 g/dL (33.0-37.0); Mean Corpuscular Hgb 31.8 pg (27.0-31.0); Mean Corpuscular Volume 90.6 fL (81.0-99.0); Mean Platelet Volume 9.7 fL (7.4-10.4); Nucleated Red Blood Cells % 0 %; Platelet Count 229 10^3/uL (130-400); Red Blood Cell Count 4.24 10^6/uL (4.20-5.40); Red Cell Dist. Width 12.5 % (11.5-14.5); White Blood Cell Count 6.8 10^3/uL (4.8-10.8)
[2024-12-22 09:19] LABS: COVID-19 Antigen Negative (Negative)
[2024-12-22 09:28] LABS: ALT (SGPT) 27 U/L (0-35); AST (SGOT) 27 U/L (14-36); Albumin 4.5 g/dl (3.5-5.0); Alkaline Phosphatase 81 U/L (38-126); Blood Urea Nitrogen 11 mg/dl (7-17); Calcium 9.3 mg/dl (8.4-10.2); Carbon Dioxide 25 mmol/L (22-30); Chloride 108 mmol/L (98-107); Glucose 117 mg/dl (70-99); Lipase 63 U/L (23-300); Potassium 4.1 mmol/L (3.5-5.1); Sodium 140 mmol/L (135-145); Total Bilirubin 0.7 mg/dl (0.2-1.3); eGFR > 60.00
[2024-12-22 09:32] LABS: Troponin I < 0.012 ng/ml
[2024-12-22 10:30] VITALS: BP 115/66
[2024-12-22 11:36] VITALS: BP 111/67
[2024-12-22 12:00] VITALS: BP 110/77
== END 2024-12-22 13:01 | disposition home or self-care (01) ==
LOC: EMR 08:03
PROVIDERS: EMERGENCY PHYSICIAN Student in an Organized Health Care Education/Training Program
DX: K20.90 Esophagitis, unspecified without bleeding (principal); F17.290 Nicotine dependence, other tobacco product, uncomplicated; Z11.52 Encounter for screening for COVID-19
CPT/HCPCS: 99285; 71046; 80053; 83690; 84484; 85025; 87811; 93005